=== PATIENT | male | born 1960 | race Two or more races ===

== ENCOUNTER 2021-03-31 16:44 | Inpatient (IN) | payer BC, OTHER ==
[~2021-03-31] VITALS: Ht 172.7 cm; Wt 89.1 kg
[2021-03-31] MEDS ORDERED: ALBUTEROL SULF 2.5 MG/0.5ML(0.5%) NEB SOLN HHN ONE (17:30)
[2021-03-31 17:38] LABS: Basophils # (auto) 0 10 ^3/uL (0-0.2); Basophils % (auto) 0.8 % (0.0-2.0); Eosinophils # (auto) 0.1 10 ^3/uL (0-0.8); Eosinophils % (auto) 1.5 % (0.0-7.0); Hematocrit 42.4 % (41.0-53.0); Hemoglobin 14.6 g/dL (13.5-17.5); Lymphocytes # (auto) 1.5 10 ^3/uL (0.4-5.4); Lymphocytes % (auto) 26.2 % (10.0-50.0); Mean Corpuscular Hemoglobin 32.4 pg (28.0-32.0); Mean Corpuscular Hgb Conc. 34.5 g/dL (32.0-36.0); Mean Corpuscular Volume 93.8 fL (80.0-100.0); Monocytes # (auto) 0.4 10 ^3/uL (0-1.3); Monocytes % (auto) 7.6 % (0.0-12.0); Neutrophils # (auto) 3.7 10 ^3/uL (1.6-8.6); Neutrophils % (auto) 63.9 % (37.0-80.0); Nucleated Red Blood Cells % 0.1 %; Red Blood Cells 4.52 10^6/uL (4.5-5.90); Red Cell Distribution Width 13.8 % (11.8-14.3); White Blood Cell 5.8 10^3/uL (4.4-10.8)
[2021-03-31 17:53] LABS: Alanine Aminotransferase 21 U/L (16-61); Albumin 3.3 g/dL (3.4-5.0); Anion Gap 7 (5-15); Aspartate Aminotransferase 17 U/L (15-37); Blood Urea Nitrogen 11 mg/dL (7-18); Calcium 8.2 mg/dL (8.5-10.1); Carbon Dioxide 24 mmol/L (21-32); Chloride 103 mmol/L (98-107); Glucose 269 mg/dL (74-106); Potassium 3.7 mmol/L (3.5-5.1); Sodium 134 mmol/L (136-145)
[2021-03-31 17:57] LABS: Alkaline Phosphatase 108 U/L (45-117); BUN/Creatinine Ratio 10.3; Bilirubin, Total 1.4 mg/dL (0.2-1.0); GFR African American 91 mL/min; GFR Non-African American 75 mL/min; Total Protein 7.4 g/dL (6.4-8.2)
[2021-03-31] MEDS ORDERED: levoFLOXacin 750MG 150 ML IV ONE (18:00)
[2021-03-31 22:08] LABS: Lactic Acid w/Reflex 2.8 mmol/L (0.4-2.0)
[2021-03-31] MEDS ORDERED: TEMAZEPAM 15 MG CAP PO PRN (23:15)
[2021-03-31] MEDS ORDERED: MORPHINE SULFATE INJECTION 2 MG/ML SYRG IV PRN (23:15)
[2021-03-31] MEDS ORDERED: NITROGLYCERIN 0.4 MG SL TAB SL PRN (23:15)
[2021-03-31] MEDS ORDERED: DEXTROSE (50%) 50ML SYRG IV PRN (23:15)
[2021-03-31] MEDS ORDERED: DexAMETHasone SOD PHOS 10MG/1ML VIAL INJ IV ONE (23:15)
[2021-03-31] MEDS ORDERED: ONDANSETRON HCL 4 MG/2 ML VIAL IV PRN (23:15)
[2021-03-31] MEDS ORDERED: SODIUM CHLORIDE 0.9% 500 ML IV ONE (23:15)
[2021-03-31] MEDS ORDERED: ACETAMINOPHEN 325 MG TAB PO PRN (23:15)
[2021-03-31] MEDS ORDERED: ALBUTEROL SULF 2.5 MG/0.5ML(0.5%) NEB SOLN NEB PRN (23:15)
[2021-04-01] VITALS (7 sets, daily range): BP systolic 108–117; BP diastolic 73–84
[2021-04-01] MEDS ORDERED: chlordiazePOXIDE HCL 25 MG CAP PO PRN (00:30)
[2021-04-01] MEDS ORDERED: AZITHROMYCIN 500MG/ 250ML 250 ML IV ONE (00:30)
[2021-04-01] MEDS: ACCU-CHEK COMFORT CURVE STRIP VI SCH ×4 (06:44→21:50)
[2021-04-01] MEDS: InsuLIN REG 1unit/0.01ml Soln (100units/ml) SC SCH ×4 (06:45→21:53)
[2021-04-01 07:53] LABS: Basophils # (auto) 0 10 ^3/uL (0-0.2); Basophils % (auto) 0.1 % (0.0-2.0); Eosinophils # (auto) 0 10 ^3/uL (0-0.8); Eosinophils % (auto) 0.1 % (0.0-7.0); Hematocrit 41.4 % (41.0-53.0); Hemoglobin 14.4 g/dL (13.5-17.5); Lymphocytes # (auto) 0.4 10 ^3/uL (0.4-5.4); Lymphocytes % (auto) 10.4 % (10.0-50.0); Mean Corpuscular Hemoglobin 32.5 pg (28.0-32.0); Mean Corpuscular Hgb Conc. 34.9 g/dL (32.0-36.0); Monocytes # (auto) 0.1 10 ^3/uL (0-1.3); Monocytes % (auto) 1.8 % (0.0-12.0); Neutrophils # (auto) 3.3 10 ^3/uL (1.6-8.6); Neutrophils % (auto) 87.6 % (37.0-80.0); Red Blood Cells 4.45 10^6/uL (4.5-5.90); Red Cell Distribution Width 13.9 % (11.8-14.3); White Blood Cell 3.8 10^3/uL (4.4-10.8)
[2021-04-01 08:16] LABS: BUN/Creatinine Ratio 11.4; Calcium 7.9 mg/dL (8.5-10.1)
[2021-04-01 08:19] LABS: Bilirubin, Total 1.6 mg/dL (0.2-1.0); Total Protein 6.9 g/dL (6.4-8.2)
[2021-04-01] MEDS: cefTRIAXone 1GM/50ML D5W 50 ML IV SCH (09:03)
[2021-04-01] MEDS: PANTOPRAZOLE 40 MG TAB PO SCH (09:04)
[2021-04-01] MEDS: ENOXAPARIN SOD 40 MG/0.4 ML SYRINGE SC SCH (09:04)
[2021-04-01] MEDS ORDERED: ZINC SULFATE 220mg CAP or TAB PO SCH (10:00)
[2021-04-01] MEDS ORDERED: AZITHROMYCIN 500MG/ 250ML 250 ML IV SCH ×2 (10:00→22:00)
[2021-04-01] MEDS ORDERED: ASCORBIC ACID 500 MG TAB PO SCH (10:00)
[2021-04-01] MEDS ORDERED: DexAMETHasone SOD PHOS 10MG/1ML VIAL INJ IV SCH (10:00)
[2021-04-01] MEDS ORDERED: FOLIC ACID 1 MG, MULTIPLE VITAMIN 10 ML, MAGNESIUM SULF SDV 50% 8 MEQ, THIAMINE INJ 100... INJ SCH ×5 (12:00)
[2021-04-01] MEDS ORDERED: FUROSEMIDE 40 MG/4 ML VIAL IV ONE (21:45)
[2021-04-02 05:00] VITALS: BP 94/64
[2021-04-02] MEDS: ACCU-CHEK COMFORT CURVE STRIP VI SCH ×4 (06:17→22:03)
[2021-04-02] MEDS: InsuLIN REG 1unit/0.01ml Soln (100units/ml) SC SCH ×4 (06:18→22:07)
[2021-04-02] MEDS ORDERED: IOHEXOL 350 MG/ML 100ML IJ ONE (08:35)
[2021-04-02 09:00] VITALS: BP 114/77
[2021-04-02] MEDS: cefTRIAXone 1GM/50ML D5W 50 ML IV SCH (09:02)
[2021-04-02] MEDS: ENOXAPARIN SOD 40 MG/0.4 ML SYRINGE SC SCH (10:41)
[2021-04-02] MEDS: PANTOPRAZOLE 40 MG TAB PO SCH (10:41)
[2021-04-02] MEDS: FUROSEMIDE 40 MG/4 ML VIAL IV SCH (10:42)
[2021-04-02 13:00] VITALS: BP 104/69
[2021-04-02] MEDS: NICOTINE 14 MG/24HR TOPICAL PATCH TD SCH (14:26)
[2021-04-02 15:13] LABS: Urine Bacteria NONE SEEN /hpf (None Seen); Urine Blood Negative /uL (Negative); Urine Specific Gravity 1.011 (1.001-1.035); Urine WBC <1 /hpf (0 - 3)
[2021-04-02] MEDS: ENALAPRIL MALEATE 2.5 MG TAB PO SCH (15:29)
[2021-04-02 15:31] LABS: Amphetamine Screen, Urine NEGATIVE (NEGATIVE); Barbiturate Scree,Urine NEGATIVE (NEGATIVE); Benzodiazephine Screen, Urine NEGATIVE (NEGATIVE); Cannabinoid Screen, Urine NEGATIVE (NEGATIVE); Cocaine Screen, Urine NEGATIVE (NEGATIVE); Opiate Scree,Urine NEGATIVE (NEGATIVE); Phencyclidine Screen, Urine NEGATIVE (NEGATIVE)
[2021-04-02 16:37] VITALS: BP 98/68
[2021-04-02] MEDS: CARVEDILOL 3.125 MG TAB PO SCH (21:41)
[2021-04-02 22:20] VITALS: BP 103/70
[2021-04-03 05:20] VITALS: BP 95/70
[2021-04-03] MEDS: ACCU-CHEK COMFORT CURVE STRIP VI SCH ×4 (06:34→21:24)
[2021-04-03] MEDS: InsuLIN REG 1unit/0.01ml Soln (100units/ml) SC SCH ×4 (06:34→21:29)
[2021-04-03 09:00] VITALS: BP 93/67
[2021-04-03] MEDS: NICOTINE 14 MG/24HR TOPICAL PATCH TD SCH (10:00)
[2021-04-03] MEDS: ENOXAPARIN SOD 40 MG/0.4 ML SYRINGE SC SCH (10:00)
[2021-04-03] MEDS: FUROSEMIDE 40 MG/4 ML VIAL IV SCH (11:12)
[2021-04-03] MEDS: CARVEDILOL 3.125 MG TAB PO SCH ×2 (11:13→21:41)
[2021-04-03] MEDS: PANTOPRAZOLE 40 MG TAB PO SCH (11:42)
[2021-04-03] MEDS: ENALAPRIL MALEATE 2.5 MG TAB PO SCH (11:43)
[2021-04-03 13:00] VITALS: BP 84/58
[2021-04-03] MEDS ORDERED: FURO40TA4 PO (13:37)
[2021-04-03] MEDS ORDERED: ENAL2.5T7 PO (13:37)
[2021-04-03] MEDS ORDERED: CAR3125T PO (13:37)
[2021-04-03 17:06] VITALS: BP 110/72
[2021-04-03 21:35] VITALS: BP 84/58
[2021-04-03 22:56] VITALS: BP 108/73
[2021-04-04 05:00] VITALS: BP 98/75
[2021-04-04] MEDS: ACCU-CHEK COMFORT CURVE STRIP VI SCH (05:58)
[2021-04-04] MEDS: InsuLIN REG 1unit/0.01ml Soln (100units/ml) SC SCH (05:59)
[2021-04-04 09:00] VITALS: BP 99/72
[2021-04-04] MEDS: ENALAPRIL MALEATE 2.5 MG TAB PO SCH (09:43)
[2021-04-04] MEDS: ENOXAPARIN SOD 40 MG/0.4 ML SYRINGE SC SCH (09:44)
[2021-04-04] MEDS: FUROSEMIDE 40 MG/4 ML VIAL IV SCH (09:44)
[2021-04-04] MEDS: CARVEDILOL 3.125 MG TAB PO SCH (09:44)
[2021-04-04] MEDS: PANTOPRAZOLE 40 MG TAB PO SCH (09:44)
[2021-04-04] MEDS: NICOTINE 14 MG/24HR TOPICAL PATCH TD SCH (09:45)
== END 2021-04-04 10:07 | disposition left against medical advice (07) | DRG 871 ==
LOC: ER 16:44 → TELE 23:09 → TELE-EAST 04-01 03:12 → TELE-WESTW 04-03 22:58
PROVIDERS: ADMIT Nurse Practitioner; ATTEND Internal Medicine
DX: A41.9 Sepsis, unspecified organism (principal); I50.23 Acute on chronic systolic (congestive) heart failure; J96.00 Acute respiratory failure, unspecified whether with hypoxia or hypercapnia; J18.9 Pneumonia, unspecified organism; E44.0 Moderate protein-calorie malnutrition; E87.1 Hypo-osmolality and hyponatremia; I42.9 Cardiomyopathy, unspecified; Z94.4 Liver transplant status; E11.65 Type 2 diabetes mellitus with hyperglycemia; Z53.29 Procedure and treatment not carried out because of patient's decision for other reasons; F17.210 Nicotine dependence, cigarettes, uncomplicated; K74.60 Unspecified cirrhosis of liver; I11.0 Hypertensive heart disease with heart failure; Z20.822 Contact with and (suspected) exposure to COVID-19; Z80.0 Family history of malignant neoplasm of digestive organs; Z59.0 Homelessness
CPT/HCPCS: 36415; 71045; 71275; 76705; 80053; 80307; 81001; 82728; 82962; 83036; 83605; 83615; 83880; 84484; 85025; 85379; 86141; 87040; 87426; 93005; 93306; 94640; 94644; 96361; 96365; 99291; G0378; J0696; J1100; J1815; J1956

== ENCOUNTER 2022-08-22 03:48 | Emergency (ER) | payer BC, MEDICAID ==
[~2022-08-22] VITALS: Ht 170.2 cm; Wt 77.6 kg
[~2022-08-22 03:48] MED LIST: CAR3125T PO; ENAL2.5T7 PO; FURO40TA4 PO
[2022-08-22 05:22] LABS: Hematocrit 47.6 % (41.0-53.0); Mean Corpuscular Hgb Conc. 33.7 g/dL (32.0-36.0); Mean Corpuscular Volume 91.9 fL (80.0-100.0); Red Blood Cells 5.18 10^6/uL (4.5-5.90); Red Cell Distribution Width 12.8 % (11.8-14.3)
[2022-08-22 05:30] LABS: Basophils % (manual) 0 (0.0-2.0); Blast Cells 0; Eosinophils % (manual) 0 (0-7); Metamyelocytes % 0; Myelocytes % 0; Promyelocytes % 0; Reactive Lymphocytes 0
[2022-08-22 05:35] LABS: Albumin 4.1 g/dL (3.4-5.0); Calcium 9.1 mg/dL (8.5-10.1); Potassium 4.2 mmol/L (3.5-5.1)
[2022-08-22 05:39] LABS: BUN/Creatinine Ratio 5.4; Bilirubin, Total 0.5 mg/dL (0.2-1.0); Total Protein 7.1 g/dL (6.4-8.2)
[2022-08-22] MEDS ORDERED: MORPHINE SULFATE INJ 2 MG/ml SYRG IM ONE (06:00)
[2022-08-22] MEDS ORDERED: ONDANSETRON ODT 4 MG TAB PO ONE (06:00)
[2022-08-22] MEDS ORDERED: CIPR-173 PO (07:15)
[2022-08-22] MEDS ORDERED: HYDROcodone-ACET 10/325MG TAB PO ONE (07:30)
[2022-08-22 08:00] VITALS: BP 135/82
[2022-08-22 13:32] LABS: Band Neutrophils % (manual) 14; Lymphocytes % (manual) 7 (10.0-50.0); Monocytes % (manual) 4 (0-12)
== END 2022-08-22 08:00 | disposition home or self-care (01) ==
LOC: ER 03:48
DX: R10.2 Pelvic and perineal pain (principal); R11.2 Nausea with vomiting, unspecified; I10 Essential (primary) hypertension; E11.9 Type 2 diabetes mellitus without complications; Z79.2 Long term (current) use of antibiotics; Z79.899 Other long term (current) drug therapy
CPT/HCPCS: 36415; 74176; 80053; 83690; 85007; 85027; 96372; 99284; J2270; Q0162